=== PATIENT | male | born 1955 | race Caucasian/White ===

== ENCOUNTER 2016-05-11 08:45 | Emergency (ER) | payer BC ==
[2016-05-11 08:59] VITALS: BP 134/66
--- NOTE | 2016-05-11 09:10 | UC ---
Throat Pain/Nasal [place] HPI - HPI Summary HPI Summary: 3 day history of frontal headache, ear pain, some associated phonophobia. No nausea or vomiting, feels off balance, no vertigo. Long history of bilateral tinnitus. Some congested cough Uncertain onset of fever, last had acetaminophen about 3 hours ago. - History of Current Complaint Chief Complaint: [place] Stated Complaint: SINUS,HEADACHE,EAR PAIN Time Seen by Provider: 05/11/16 08:58 Hx Obtained From: Patient Onset/Duration: Gradual Onset, Lasting Days - 3 days of headache Severity: Moderate Pain Intensity: 6 Pain Scale Used: 0-10 Numeric Cough: Nonproductive Associated Signs & Symptoms: Positive: Sinus Discomfort, Fever - Allergies/Home Medications Allergies/Adverse Reactions: Allergies Allergy/AdvReac Type Severity Reaction Status Date / Time seasonal and dust Allergy Eyes Uncoded 05/11/16 08:54 Itchy/Swollen/Red/Watery Home Medications: Home Medications Acetaminophen TAB* [Tylenol TAB*] 650 mg PO Q4H PRN 05/11/16 [History Confirmed 05/11/16] Levothyroxine TAB* [Synthroid TAB*] 112 mcg PO QAM 05/11/16 [History Confirmed 05/11/16] PMH/Surg Hx/FS Hx/Imm Hx Endocrine History Of: Reports: Thyroid Disease - s/p Partial Thyroidectomy for large benign nodule. - Surgical History Surgical History: Yes Surgery Procedure, Year, and Place: Partial Thyroidectomy, 2016. 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 Respiratory: Negative Cardiovascular: Negative Gastrointestinal: Negative Genitourinary: Negative Motor: Negative Neurovascular: Negative Musculoskeletal: Myalgia Neurological: Headache, Other - feels a bit off balance, no vertigo, no double vision. No sided weakness or paresthesias. Psychological: Negative All Other Systems Reviewed And Are Negative: Yes Physical Exam Triage Information Reviewed: Yes Appearance: Ill-Appearing - looks mildly unwell., Pain Distress - mild to moderate. Vital Signs: Initial Vital Signs Temp 99.6 F 05/11/16 08:51 Pulse 86 05/11/16 08:51 Resp 16 05/11/16 08:51 BP 134/66 05/11/16 08:51 Pulse Ox 96 05/11/16 08:51 Vital Signs Reviewed: Yes Eyes: Positive: Conjunctiva Clear, Other: - KAILEY, normal eye movements without nystagmus. No photophobia. ENT: Positive: Pharyngeal erythema, TM dull - left TM retracted, right not as well seen secondary to cerumen., Other: - percussive tenderness frontal sinuses. Dental Exam: Normal Neck: Positive: Supple - no pain with neck movement., Nontender, No Lymphadenopathy Respiratory: Positive: Lungs clear, Normal breath sounds Cardiovascular: Positive: RRR, No Murmur Abdomen Description: Positive: Nontender, No Organomegaly Musculoskeletal: Positive: Strength Intact Neurological: Positive: Alert, Muscle Tone Normal Psychological Exam: Normal Skin Exam: Normal Throat Pain/Nasal Course/Dx - Course Course Of Treatment: augmentin for bilateral frontal sinusitis. - Differential Dx/Diagnosis Differential Diagnosis/HQI/PQRI: Influenza, Pharyngitis, Sinusitis Provider Diagnoses: acute bilateral frontal sinusitis. Discharge - Discharge Plan Condition: Stable Disposition: HOME Prescriptions: Amoxicillin/Clavulanate TAB* [Augmentin TAB 875*] 875 mg PO BID #20 tab Additional Instructions: Take full course of antibiotics; it could take 3 days before a good response is seen. Ibuprofen might be more effective for the headache; take 600mg three times daily with food. You can alternate with acetaminophen if needed. Follow up if the headache becomes more severe, or if your develop vomiting or light sensitivity.
[2016-05-11] MEDS ORDERED: Ibuprofen TAB* 400 MG PO ONE (09:14)
== END 2016-05-11 09:40 | disposition home or self-care (01) ==
LOC: UCCORT 08:45
DX: J01.10 Acute frontal sinusitis, unspecified (principal); R50.9 Fever, unspecified; R05 Cough; R53.83 Other fatigue; H93.13 Tinnitus, bilateral; E07.9 Disorder of thyroid, unspecified
CPT/HCPCS: 99212; A9270-GY; G0463